=== PATIENT | female | born 1955 | race Caucasian/White ===

== ENCOUNTER → 2018-08-04 | Outpatient (CLI) | payer OTHER ==
[~2018-08-04] MED LIST: CALC-515 PO; CALC600T63 PO; CHOL100052 PO; IBUP-1671 PO; IRON18TA2 PO; LORA-633 PO; MAGN250T34 PO; MESA1.2T2 PO; MESA10007 RC; MULT-1335 PO; MULT-770 PO; MULT1TAB64 PO; PROC-35 PO; PYRI100T57 PO; [UNRECOGNIZED DRUG - CODE] RC
--- NOTE | 2018-08-10 16:44 | RADIOLOGY IMAGING REPORT ---
FACILITY: [facility] PATIENT NAME: OSCAR MCKEON : [id number] MR: [id number] V: [id number] EXAM DATE: [id number] ORDERING PHYSICIAN: CATHERINE DALLAS TECHNOLOGIST: Denia Rinaldi PROCEDURE:BILATERAL DIGITAL SCREENING MAMMOGRAM WITH CAD ASSISTED INTERPRETATION & 3D TOMOSYNTHESIS COMPARISON:Prior mammograms. INDICATIONS:SCREENING, PREVIOUS RIGHT LUMPECTOMY. FINDINGS: The breasts are heterogeneously dense. An architectural distortion is present in the lateral aspect of the Right breast consistent with surgical scaring, unchanged. Benign appearing asymmetries are scattered bilaterally, unchanged. DIAGNOSTIC CATEGORY 1--NEGATIVE. RECOMMENDATIONS: ROUTINE MAMMOGRAM AND CLINICAL EVALUATION IN 1 YR. IMPRESSION: BIRADS 1: Negative. Dictated by: Mohsen Gorman M.D. on 08/05/2018 at 11:00 Transcribed by: CHEN on 08/05/2018 at 11:22 Approved by: Halley Donnelly M.D. on 08/10/2018 at 16:43 [facility]
== END ==
LOC: MAMO 00:51
PROVIDERS: ATTEND Nurse Practitioner Family
DX: Z12.31 Encounter for screening mammogram for malignant neoplasm of breast (principal)
CPT/HCPCS: 77063; 77067

== ENCOUNTER 2018-08-09 10:42 | Outpatient (RCR) | payer OTHER ==
[2018-08-09 10:48] VITALS: BP 108/73
--- NOTE | 2018-08-09 16:09 | ONCOLOGY FOLLOW UP NOTE ---
EVENT DATE: August 09, 2018 CHIEF COMPLAINT/REASON FOR VISIT Ms. Saunders is a pleasant, 63-year-old female with a history of stage II right- sided breast cancer, ER positive, HER2/raffaele normal (pT3 pN1 M0) diagnosed in 2010, here for followup. HISTORY OF PRESENT ILLNESS Kaylan returns. She was diagnosed in 2010 with a mammogram for her right-sided breast cancer. This was ER/CO positive, HER2/raffaele normal. She had a right breast lumpectomy with axillary lymph node dissection of 10 lymph nodes in October 2011. One of 10 lymph nodes was positive for cancer. She had received neoadjuvant chemotherapy with dose-dense AC-T prior to her surgery. She then received adjuvant radiation therapy, initiating this in December 2011. She had been on Arimidex from 2011 until 2013, but discontinued it due to side effects. At one point, she had an elevation of CEA, but this has normalized, and a workup including colonoscopy with scans have all been negative. INTERVAL HISTORY Patient continues to do quite well. No new symptoms of concern. 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 No fevers, chills, lumps, or bumps. She had a mammogram last week, and I reviewed the images personally. By report verbally, the radiologist reviews this as unchanged with scar tissue and dense sprints, but no new lesions. I agree with this and defer to the radiologist's formal report. Breast exam done today and unremarkable. No patient-reported lumps or findings on exam. PAST MEDICAL HISTORY 1. Right-sided breast cancer. 2. Insomnia. 3. History of lumpectomy with radiation therapy. 4. History of tubal ligation. 5. History of mildly elevated CEA, but comprehensive workup investigating this was unremarkable. It has returned to normal. SOCIAL HISTORY Patient is , has two children. 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 REVIEW OF SYSTEMS CONSTITUTIONAL: No fever, chills, significant weight change. HEENT: No headache or vision changes. CARDIOVASCULAR: No chest pain, dyspnea, on exertion or edema. RESPIRATORY: No shortness of breath, wheeze, cough. GASTROINTESTINAL: No nausea, vomiting, diarrhea, or constipation. GENITOURINARY: No dysuria or hematuria. MUSCULOSKELETAL: No weakness or joint pain. PSYCHIATRIC: No anxiety or depression. ENDOCRINE: No heat or cold intolerance. SKIN: No concerning rashes or lesions. The remainder of the 14-point review of systems otherwise negative except as noted above in the HPI. PHYSICAL EXAMINATION VITAL SIGNS: Blood pressure 108/73, pulse 64, respiratory rate 16, temperature 97.4 Fahrenheit, oxygen saturation 94% on room air. Weight 81.2 kg, which is a 10-pound improvement from two years ago. Pain 3/10 and fatigue 6/10. GENERAL: Stable condition, resting comfortably in the chair. ECOG performance status of zero. BREASTS: Mammogram was done recently. No findings on the breast exam bilaterally today. AXILLAE: She does have a prominent vein in the axilla that is occasionally "itchy," but no other abnormalities. LYMPHATIC: No appreciable cervical, supraclavicular, or axillary adenopathy. CARDIOVASCULAR: Regular rate and rhythm. LUNGS: Clear. ABDOMEN: Soft, nontender. EXTREMITIES: No clubbing, cyanosis, or edema. Remainder of physical exam otherwise unremarkable. IMPRESSION AND PLAN Mrs. Saunders is a pleasant female with the followin. Distant history of right-sided breast cancer stage II, ER/CO positive. She is off aromatase inhibitor due to side effects. We will check her labs and physical exams annually with mammograms. 2. History of an elevated CEA that normalized. 3. History of rectal bleeding, but had a colonoscopy and scans which were negative. No recurrent. No other issues. BILLING Return visit level 4. Total time 30 minutes, counseling time 20. MTDD
== END 2018-10-12 08:56 | disposition home or self-care (01) ==
LOC: ONC 10:42
PROVIDERS: ATTEND Internal Medicine
DX: Z85.3 Personal history of malignant neoplasm of breast (principal); Z92.21 Personal history of antineoplastic chemotherapy
CPT/HCPCS: 99212